=== PATIENT | male | born 1995 | race Caucasian/White ===

== ENCOUNTER 2023-10-01 19:33 | Emergency (ER) | payer BC, MEDICARE ==
[~2023-10-01] VITALS: Ht 185.4 cm; Wt 100.0 kg
[2023-10-01 19:48] VITALS: TEMP 98.5
[2023-10-01 22:50] VITALS: BP 124/66; PULSE 64; RESP 16
[2023-10-02] MEDS ORDERED: CEPH-556 PO (00:12)
[2023-10-02] MEDS: PERTUSS(ACELL),DIPH,TET/PF 0.5 ML SYRINGE [ADULT] IM. ONE (00:21)
== END 2023-10-02 00:30 | disposition home or self-care (01) ==
LOC: EMS 19:33
DX: S81.832A Puncture wound without foreign body, left lower leg, initial encounter (principal); X58.XXXA Exposure to other specified factors, initial encounter; Y93.89 Activity, other specified; Y92.89 Other specified places as the place of occurrence of the external cause; Y99.8 Other external cause status
CPT/HCPCS: 90471; 90715; 99283